=== PATIENT | female | born 1945 | race Caucasian/White ===

== ENCOUNTER 2016-06-18 06:07 | Day surgery (SDC) | payer MEDICARE, OTHER ==
[~2016-06-18 06:07] MED LIST: Ketamine HCl 50 MG/ML IJ ONE; Lactated Ringers 1,000 ML IV SCH
[2016-06-18 06:54] VITALS: O2SAT 97
[2016-06-18] MEDS ORDERED: Lactated Ringers 1,000 ML IV ONE (07:15)
[2016-06-18] MEDS ORDERED: DIPRIVAN 200 MG/20 ML IV ONE (08:00)
[2016-06-18 08:44] VITALS: BP 157/67; PULSE 66
--- NOTE | 2016-06-18 09:25 | OP ---
SURGERY DATE/TIME: 06/18/2016722 PREOPERATIVE DIAGNOSIS: Screening exam. POSTOPERATIVE DIAGNOSIS: Sigmoid diverticulosis, otherwise normal colon. PROCEDURE: Colonoscopy. SURGEON: Dr. White. ANESTHESIA: MAC. Medications given by anesthesia department. HISTORY: The patient is a 70 year-old white female presenting now for her first screening colonoscopy. The patient was appraised of the risks of the procedure including the risk of perforation, phlebitis, untoward reaction to medication, bleeding, and missed lesions. The patient verbalized her understanding and desired to have the procedure performed. DESCRIPTION OF PROCEDURE: The patient was given the medications by the anesthesia department. She had continuous pulse oximetry, ECG monitoring, intermittent blood pressure monitoring, and tidal CO2 monitoring during the examination. She was placed in the left lateral decubitus position. A digital rectal examination was performed and revealed normal anal sphincter tone and no masses. The flexible Olympus pediatric colonoscope was used to intubate the rectum. A view of the colon was developed sequentially to the cecum. Upon insertion and withdrawal, including a retroflex view in the rectum, there was noted mild to moderate sigmoid diverticulosis otherwise no mucosal lesions were encountered. The scope was removed from the patient who tolerated the procedure well and was sent back to OP recovery in good condition. The prep was noted to be fair to good.
== END 2016-06-18 08:52 | disposition home or self-care (01) ==
LOC: SDC 06:07
PROVIDERS: ATTEND Family Medicine
PROC: 0DJD8ZZ Inspection of Lower Intestinal Tract, Via Natural or Artificial Opening Endoscopic (ICD-10-PCS; principal; 2016-06-18)
DX: Z12.11 Encounter for screening for malignant neoplasm of colon (principal); K57.30 Diverticulosis of large intestine without perforation or abscess without bleeding; E11.9 Type 2 diabetes mellitus without complications; Z85.3 Personal history of malignant neoplasm of breast
CPT/HCPCS: 82962; G0121; 00810; 99100; J2704

== ENCOUNTER 2017-06-20 13:03 | Emergency (ER) | payer MEDICARE ==
[2017-06-20 14:15] LABS: BASOPHIL % 1.3 % (0.0-0.4); Basophil (Absolute #) 0.09 (0-0.4); Eosinophil % 2.3 % (0.00-5.0); Eosinophil (Absolute #) 0.16 (0-0.5); Granulocyte Absolute (ANC) 3.33 (1.4-6.9); Granulocytes % 48.9 % (36.0-66.0); Hematocrit 38.2 % (35-47); Hemoglobin 12.4 gm/dl (12.0-16.0); Lymphocyte (Absolute #) 2.32 (1.0-4.6); Mean Cell Volume 89.3 fl (78-100); Mean Corpuscular Hgb Concent. 32.5 g/dl (32-36); Mean Platelet Volume 10.3 fl (6-9.5); Monocyte (Absolute #) 0.92 (0.0-1.3); Monocytes % 13.5 % (0.0-12.0); Platelet Count 208 K/mm3 (150-450); Red Blood Count 4.28 M/mm3 (4.1-5.4); White Blood Count 6.8 K/mm3 (4.0-10.5)
[2017-06-20 14:39] LABS: ALBUMIN 4.3 g/dL (3.5-5.0); ALKALINE PHOSPHATASE 112 U/L (38-126); ANION GAP 14.2 MEQ/L (5-15); BLOOD UREA NITROGEN 9 mg/dL (7-17); CHLORIDE 103 mmol/L (98-107); Calcium 9.6 mg/dL (8.4-10.2); Carbon Dioxide 25 mmol/L (22-30); Creatinine 1 0.66 mg/dL (0.52-1.04); Glucose 144 mg/dL (74-106); SGOT/AST 28 U/L (14-36); SGPT/ALT 26 U/L (0-35); SODIUM 137 mmol/L (137-145); Total Protein 7.1 g/dL (6.3-8.2)
--- NOTE | 2017-06-20 14:57 | XRAY ---
Indication: Right leg pain and swelling. Two-dimensional sonogram and color Doppler imaging of the major venous vessels of the right leg was performed. Comparison: February 08, 2016. Upper calf again demonstrates superficial venous varicosity with intraluminal echogenicities favoring thrombophlebitis. This further extends to the level of the knee and distal thigh. Again no thrombus seen in the examined deep venous vessels the right leg including greater saphenous vein. Veins demonstrate normal compressibility. Venous waveforms are normal without without augmentation. Impression: 1. Progressive worsening superficial venous varicosities with thrombophlebitis as detailed. 2. Right leg again negative for DVT.
[2017-06-20 15:04] VITALS: O2SAT 99
--- NOTE | 2017-06-20 15:59 | ERPHSYRPT ---
- History of Present Illness Time Seen by Provider: 06/20/17 13:52 Source: patient, family () Patient Subjective Stated Complaint: pt states "I have another blood clot in my leg. I had one before." states its been bothering her since Saturday. has been swollen, and painful Triage Nursing Assessment: gait steady, right leg posterior/lateral just above knee with redness, swelling, hot to touch. pedal pulses palpable. lower leg warm to touch, toes cool bilat. Physician History: CC: right leg swelling Hx: 71 y/o patient of Dr Oropeza. She has hx of superficial thrombophlebitis. She has new right leg swelling above the knee inner leg. It is red and warm and her varicose vein worse. No fever, chills, chest pain, or dyspnea. Occurred: days ago (few) Quality: constant Lower Extremities Pain: leg: right Allergies/Adverse Reactions: Sulfa (Sulfonamide Antibiotics) Allergy (Intermediate, Verified 06/18/16 06:36) Hives nitrofurantoin [From Macrobid] Allergy (Unknown, Verified 06/18/16 06:36) Rash Home Medications: Metformin HCl 1000 mg [Glucophage 1000 MG] 1,000 mg PO BID 10/21/15 [History] Hx Tetanus, Diphtheria Vaccination/Date Given: Yes Hx Influenza Vaccination/Date Given: Yes Hx Pneumococcal Vaccination/Date Given: Yes Immunizations Up to Date: Yes - Review of Systems Constitutional: No Fever, No Chills Eyes: No Symptoms Ears, Nose, & Throat: No Symptoms Respiratory: No Dyspnea Cardiac: No Chest Pain Abdominal/Gastrointestinal: No Abdominal Pain Musculoskeletal: No Injury Neurological: No Focal Weakness, No Parasthesia All Other Systems: Reviewed and Negative - Past Medical History Pertinent Past Medical History: Yes Neurological History: No Pertinent History ENT History: No Pertinent History Cardiac History: No Pertinent History Respiratory History: No Pertinent History Endocrine Medical History: Diabetes Type II Musculoskeletal History: Rheumatoid Arthritis, Other GI Medical History: No Pertinent History History: No Pertinent History Psycho-Social History: No Pertinent History Female Reproductive Disorders: No Pertinent History, Endometriosis Other Medical History: right knee replacement, DVT unknown date right leg? - Past Surgical History Past Surgical History: Yes Neuro Surgical History: No Pertinent History Cardiac: No Pertinent History Respiratory: No Pertinent History Gastrointestinal: Appendectomy Genitourinary: No Pertinent History Musculoskeletal: Orthopedic Surgery Female Surgical History: Hysterectomy, Other Other Surgical History: BREAST BIOPSY - Social History Smoking Status: Never smoker Exposure to second hand smoke: No Drug Use: none Patient Lives Alone: No - Female History Hx Now: No - Nursing Vital Signs Nursing Vital Signs: Initial Vital Signs Temperature 97.8 F 06/20/17 13:03 Pulse Rate 62 06/20/17 13:03 Respiratory Rate 16 06/20/17 13:03 Blood Pressure 173/84 06/20/17 13:03 O2 Sat by Pulse Oximetry 99 06/20/17 13:03 Pain Scale Pain Intensity 8 - Physical Exam General Appearance: alert Eyes, Ears, Nose, Throat Exam: normal ENT inspection, moist mucous membranes Neck Exam: normal inspection, non-tender, supple Cardiovascular/Respiratory Exam: normal breath sounds, regular rate/rhythm Gastrointestinal/Abdominal Exam: non-tender, soft Neuro/Tendon Exam: normal sensation, normal motor functions Mental Status Exam: alert, oriented x 3, cooperative Skin Exam: warm, dry SpO2 Interpretation: normal SpO2: 99 Oxygen Delivery: Room Air Comments: Right leg above knee, medial has warm, swollen, erythematous area. Pulses intact. ROM intact. - Course Nursing assessment & vital signs reviewed: Yes Ordered Tests: Active Orders 24 hr Category Date Time Status VENOUS UNILAT/LIMITED EXTREMIT [US] Stat Exams 06/20/17 13:56 Completed CBC W DIFF Stat Lab 06/20/17 14:11 Completed CMP Stat Lab 06/20/17 14:11 Completed Lab/Rad Data: Laboratory Result Diagrams 06/20/17 14:11 06/20/17 14:11 Laboratory Results 06/20/17 06/20/17 Range/Units 14:11 14:11 WBC 6.8 (4.0-10.5) K/mm3 RBC 4.28 (4.1-5.4) M/mm3 Hgb 12.4 (12.0-16.0) gm/dl Hct 38.2 (35-47) % MCV 89.3 (78-100) fl MCH 29.0 (26-32) pg MCHC 32.5 (32-36) g/dl RDW 13.0 (11.5-14.0) % Plt Count 208 (150-450) K/mm3 MPV 10.3 H (6-9.5) fl Gran % 48.9 (36.0-66.0) % Eos # (Auto) 0.16 (0-0.5) Absolute Lymphs (auto) 2.32 (1.0-4.6) Absolute Monos (auto) 0.92 (0.0-1.3) Lymphocytes % 34.0 (24.0-44.0) % Monocytes % 13.5 H (0.0-12.0) % Eosinophils % 2.3 (0.00-5.0) % Basophils % 1.3 (0.0-0.4) % Absolute Granulocytes 3.33 (1.4-6.9) Basophils # 0.09 (0-0.4) Sodium 137 (137-145) mmol/L Potassium 5.0 (3.5-5.1) mmol/L Chloride 103 (98-107) mmol/L Carbon Dioxide 25 (22-30) mmol/L Anion Gap 14.2 (5-15) MEQ/L BUN 9 (7-17) mg/dL Creatinine 0.66 (0.52-1.04) mg/dL Estimated GFR > 60.0 ML/MIN Glucose 144 H (74-106) mg/dL Calcium 9.6 (8.4-10.2) mg/dL Total Bilirubin 0.60 (0.2-1.3) mg/dL AST 28 (14-36) U/L ALT 26 (0-35) U/L Alkaline Phosphatase 112 (38-126) U/L Serum Total Protein 7.1 (6.3-8.2) g/dL Albumin 4.3 (3.5-5.0) g/dL - Progress Progress Note: 06/20/17 15:55 Venous doppler right le. Progressive worsening superficial venous varicosities with thrombophlebitis as detailed. 2. Right leg again negative for DVT. Will Rx warm compresses, keflex, ibuprofen, and follow up Dr Oropeza. Counseled pt/family regarding: lab results, diagnosis, need for follow-up, rad results - Departure Time of Disposition: 15:56 Departure Disposition: Home Clinical Impression: Superficial phlebitis of right leg Condition: Stable Critical Care Time: No Referrals: SHADY OROPEZA [Primary Care Provider] - Instructions: Superficial Phlebitis Additional Instructions: Elevate leg WWarm compresses Rx keflex Rx ibuprofen Follow up with Dr Oropeza Tracy June 25 at 2:30PM. Return for worsening or concerns. Prescriptions: Cephalexin Mh 500 mg [Keflex 500 mg] 1 cap PO QID #40 capsule Ibuprofen 1 tab PO TID #24 tablet
[2017-06-20 18:02] VITALS: BP 155/70; PULSE 71
== END 2017-06-20 16:15 | disposition home or self-care (01) ==
LOC: ED 13:03
DX: I80.01 Phlebitis and thrombophlebitis of superficial vessels of right lower extremity (principal); E11.9 Type 2 diabetes mellitus without complications; Z79.84 Long term (current) use of oral hypoglycemic drugs
CPT/HCPCS: 36415; 80053; 85025; 93971; 99284

== ENCOUNTER 2018-05-28 13:34 | Observation (INO) | payer MEDICARE ==
[2018-05-28] MEDS ORDERED: Sodium Chloride 0.9% 1000 ML 1,000 ML IV STA (14:26)
--- NOTE | 2018-05-28 15:01 | XRAY ---
Indication: Tired and weak. Comparison: None PA/lateral chest is clear. Heart and mediastinal structures within normal limits. Bony thorax intact with minimal degenerative changes and minimal scoliosis. Impression: Nonacute chest.
[2018-05-28 15:06] LABS: BASOPHIL % 0.4 % (0.0-0.4); Basophil (Absolute #) 0.03 (0-0.4); Eosinophil % 2.7 % (0.00-5.0); Eosinophil (Absolute #) 0.18 (0-0.5); Granulocyte Absolute (ANC) 4.34 (1.4-6.9); Granulocytes % 64.2 % (36.0-66.0); Hematocrit 39.5 % (35-47); Hemoglobin 12.8 gm/dl (12.0-16.0); Lymphocyte (Absolute #) 1.59 (1.0-4.6); Lymphocytes % 23.5 % (24.0-44.0); Mean Cell Volume 89.6 fl (78-100); Mean Corpuscular Hgb Concent. 32.4 g/dl (32-36); Mean Platelet Volume 11.3 fl (6-9.5); Monocyte (Absolute #) 0.62 (0.0-1.3); Monocytes % 9.2 % (0.0-12.0); Platelet Count 253 K/mm3 (150-450); Red Blood Count 4.41 M/mm3 (4.1-5.4); Red Cell Distribution Width 13.1 % (11.5-14.0); White Blood Count 6.8 K/mm3 (4.0-10.5)
[2018-05-28 15:23] LABS: ALBUMIN 4.2 g/dL (3.5-5.0); ALKALINE PHOSPHATASE 87 U/L (38-126); ANION GAP 16.5 MEQ/L (5-15); BLOOD UREA NITROGEN 13 mg/dL (7-17); CHLORIDE 102 mmol/L (98-107); Carbon Dioxide 24 mmol/L (22-30); Creatinine 1 0.81 mg/dL (0.52-1.04); Glucose 123 mg/dL (74-106); Potassium 4.6 mmol/L (3.5-5.1); SGOT/AST 33 U/L (14-36); SGPT/ALT 32 U/L (0-35); SODIUM 138 mmol/L (137-145)
[2018-05-28] MEDS ORDERED: Sodium Chloride 0.9% 1000 ML 1,000 ML ONE (15:59)
--- NOTE | 2018-05-28 17:14 | ERPHSYRPT ---
- History of Present Illness Source: patient Exam Limitations: no limitations Patient Subjective Stated Complaint: pt here for palpations today at home, she states she felt a litttle dizzy and weak, but now is gone Triage Nursing Assessment: pt alert, resp easy, skin w/d/p. abd soft, no edema Physician History: Pt is a 72 y/o female that did not feel well today. She states had feeling "of butterflies" in her chest. She felt as if she is going to pass out. Pt is eating and drinking well. No chest pain, but does have palpitations. Pt states , in the past had a diagnosis of A fib, but she is on no meds for heart rate or anti coagulation. Pt has no N/V/D or abdominal pain. No dysuria, frequency or urgency. Prior Episodes: other (felt unwell through the day.) Timing/Duration: today Precipitating Factors: none Loss of Consciousness: no loss of consciousness Charcter of event(s): felt faint, almost passed out Allergies/Adverse Reactions: Sulfa (Sulfonamide Antibiotics) Allergy (Intermediate, Verified 05/28/18 13:42) Hives nitrofurantoin [From Macrobid] Allergy (Unknown, Verified 05/28/18 13:42) Rash Home Medications: Metformin HCl 1000 mg [Glucophage 1000 MG] 1,000 mg PO BID 10/21/15 [History] Hx Tetanus, Diphtheria Vaccination/Date Given: Yes Hx Influenza Vaccination/Date Given: Yes Hx Pneumococcal Vaccination/Date Given: Yes Immunizations Up to Date: Yes - Past Medical History Pertinent Past Medical History: Yes Neurological History: No Pertinent History ENT History: No Pertinent History Cardiac History: No Pertinent History Respiratory History: No Pertinent History Endocrine Medical History: Diabetes Type II Musculoskeletal History: Rheumatoid Arthritis, Other GI Medical History: No Pertinent History History: No Pertinent History Psycho-Social History: No Pertinent History Female Reproductive Disorders: No Pertinent History, Endometriosis Other Medical History: right knee replacement, DVT unknown date right leg? - Past Surgical History Past Surgical History: Yes Neuro Surgical History: No Pertinent History Cardiac: No Pertinent History Respiratory: No Pertinent History Gastrointestinal: Appendectomy Genitourinary: No Pertinent History Musculoskeletal: Orthopedic Surgery Female Surgical History: Hysterectomy, Other Other Surgical History: BREAST BIOPSY - Social History Smoking Status: Never smoker Exposure to second hand smoke: No Drug Use: none Patient Lives Alone: No - Female History Hx Last Menstrual Period: psot Hx Now: No - Review of Systems Constitutional: Lethargy Eyes: No Symptoms Ears, Nose, & Throat: No Symptoms Respiratory: No Cough, No Dyspnea Cardiac: Palpitations, Other (pre syncope) Abdominal/Gastrointestinal: No Abdominal Pain, No Nausea, No Vomiting, No Diarrhea Musculoskeletal: No Back Pain, No Neck Pain Neurological: No Dizziness, No Focal Weakness, No Sensory Changes Physical Exam - Nursing Vital Signs Nursing Vital Signs: Initial Vital Signs Temperature 97 F 05/28/18 13:43 Pulse Rate 60 05/28/18 13:43 Respiratory Rate 18 05/28/18 13:43 Blood Pressure 147/85 05/28/18 13:43 O2 Sat by Pulse Oximetry 99 05/28/18 13:43 Pain Scale Pain Intensity 0 - Leland Coma Scale Best Eye Response (Leland): (4) open spontaneously Best Verbal Response ([employer]): (5) oriented Best Motor Response (Leland): (6) obeys commands Leland Total: 15 - Physical Exam General Appearance: no apparent distress, alert Eye Exam: bilateral eye: normal inspection, PERRL, EOMI Ears, Nose, Throat Exam: normal ENT inspection, pharynx normal, moist mucous membranes Respiratory: normal breath sounds, lungs clear, No chest tenderness, No respiratory distress Cardiovascular: regular rate/rhythm (periodically HR drops below 60s), capillary refill <2 sec, No murmur, No pulse deficit Gastrointestinal: soft, No tenderness, No distention, No mass Back Exam: normal inspection, normal range of motion, No CVA tenderness, No vertebral tenderness Extremity Exam: normal inspection, normal range of motion, pelvis stable, No tenderness Mental Status: alert, oriented x 3, 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 maker 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 Exam: normal speech, PERRL, No facial droop Motor/Sensory: no motor deficit, no sensory deficit, no pronator drift SpO2: 100 - Course Nursing assessment & vital signs reviewed: Yes EKG Interpreted by Me: RATE (60bpm), Sinus Rhythm, NORMAL ST-T Ordered Tests: Active Orders 24 hr Category Date Time Status Service Parts Coordinator STAT Care 05/28/18 14:27 Active EKG-ER Only STAT Care 05/28/18 14:26 Active IV Insertion STAT Care 05/28/18 14:26 Active Orthostatic Vital Signs STAT Care 05/28/18 14:27 Active CHEST 2 VIEWS (PA AND LAT) Stat Exams 05/28/18 14:26 Completed CBC W DIFF Stat Lab 05/28/18 14:40 Completed CMP Stat Lab 05/28/18 14:40 Completed TROPONIN Q3H Lab 05/28/18 14:40 Completed TROPONIN Q3H Lab 05/28/18 17:30 Ordered TROPONIN Q3H Lab 05/28/18 20:30 Ordered TROPONIN Q3H Lab 05/28/18 23:30 Ordered TROPONIN Q3H Lab 05/29/18 02:30 Ordered Medication Summary Discontinued Medications Generic Name Dose Route Start Last Admin Trade Name Freq PRN Reason Stop Dose Admin Sodium Chloride 1,000 mls @ 999 mls/hr 05/28/18 14:26 05/28/18 16:05 Sodium Chloride 0.9% 1000 Ml IV 05/28/18 15:26 999 mls/hr .Q1H1M STA Administration Sodium Chloride Confirm 05/28/18 15:59 Sodium Chloride 0.9% 1000 Ml Administered 05/28/18 16:00 Dose 1,000 mls @ ud [facility] Lab/Rad Data: Laboratory Result Diagrams 05/28/18 14:40 05/28/18 14:40 Laboratory Results 05/28/18 05/28/18 05/28/18 Range/Units 14:40 14:40 14:40 WBC 6.8 (4.0-10.5) K/mm3 RBC 4.41 (4.1-5.4) M/mm3 Hgb 12.8 (12.0-16.0) gm/dl Hct 39.5 (35-47) % MCV 89.6 (78-100) fl MCH 29.0 (26-32) pg MCHC 32.4 (32-36) g/dl RDW 13.1 (11.5-14.0) % Plt Count 253 (150-450) K/mm3 MPV 11.3 H (6-9.5) fl Gran % 64.2 (36.0-66.0) % Eos # (Auto) 0.18 (0-0.5) Absolute Lymphs (auto) 1.59 (1.0-4.6) Absolute Monos (auto) 0.62 (0.0-1.3) Lymphocytes % 23.5 L (24.0-44.0) % Monocytes % 9.2 (0.0-12.0) % Eosinophils % 2.7 (0.00-5.0) % Basophils % 0.4 (0.0-0.4) % Absolute Granulocytes 4.34 (1.4-6.9) Basophils # 0.03 (0-0.4) Sodium 138 (137-145) mmol/L Potassium 4.6 (3.5-5.1) mmol/L Chloride 102 (98-107) mmol/L Carbon Dioxide 24 (22-30) mmol/L Anion Gap 16.5 H (5-15) MEQ/L BUN 13 (7-17) mg/dL Creatinine 0.81 (0.52-1.04) mg/dL Estimated GFR > 60.0 ML/MIN Glucose 123 H (74-106) mg/dL Calcium 10.0 (8.4-10.2) mg/dL Total Bilirubin 0.50 (0.2-1.3) mg/dL AST 33 (14-36) U/L ALT 32 (0-35) U/L Alkaline Phosphatase 87 (38-126) U/L Troponin I < 0.012 (0.000-0.034) ng/mL Serum Total Protein 7.0 (6.3-8.2) g/dL Albumin 4.2 (3.5-5.0) g/dL - Progress Progress: improved Discussed with : Carlo Will see patient in: hospital (observation) Counseled pt/family regarding: lab results, diagnosis, rad results - Departure Time of Disposition: 17:14 Departure Disposition: Observation Clinical Impression: Pre-syncope Condition: Stable Critical Care Time: No
[2018-05-28] MEDS ORDERED: NovoLOG Insulin SQ PRN (17:15)
[2018-05-28 19:07] LABS: Appearance CLEAR (CLEAR); Bilirubin NEGATIVE (NEGATIVE); Blood NEGATIVE Ery/ul (0-5); Epithelial Cells RARE /HPF (FEW); Glucose NEGATIVE (NEGATIVE); Ketones NEGATIVE (NEGATIVE); Leukocyte Esterase NEGATIVE (NEGATIVE); Mucus SLIGHT /HPF (NEGATIVE); Nitrite NEGATIVE (NEGATIVE); Protein,Urine Dip NEGATIVE (Negative); Specific Gravity 1.009 (1.005-1.025); Urobilinogen NEGATIVE mg/dL (0-1)
[2018-05-28 19:31] LABS: Bacteria NONE SEEN /HPF (NEGATIVE)
[2018-05-28] MEDS: Glucophage 500 MG PO SCH (19:49)
[2018-05-28] MEDS: TYLENOL 325 MG PO PRN (21:53)
[2018-05-29 02:50] LABS: BASOPHIL % 0.6 % (0.0-0.4); Basophil (Absolute #) 0.04 (0-0.4); Eosinophil % 3.9 % (0.00-5.0); Eosinophil (Absolute #) 0.27 (0-0.5); Granulocytes % 48.5 % (36.0-66.0); Hematocrit 38.4 % (35-47); Hemoglobin 12.5 gm/dl (12.0-16.0); Lymphocyte (Absolute #) 2.72 (1.0-4.6); Lymphocytes % 38.9 % (24.0-44.0); Mean Cell Volume 90.1 fl (78-100); Mean Corpuscular Hemoglobin 29.3 pg (26-32); Mean Corpuscular Hgb Concent. 32.6 g/dl (32-36); Mean Platelet Volume 10.5 fl (6-9.5); Monocyte (Absolute #) 0.57 (0.0-1.3); Monocytes % 8.1 % (0.0-12.0); Platelet Count 246 K/mm3 (150-450); Red Blood Count 4.26 M/mm3 (4.1-5.4)
[2018-05-29] MEDS: TYLENOL 325 MG PO PRN (02:54)
[2018-05-29 03:07] LABS: ANION GAP 13.8 MEQ/L (5-15); BLOOD UREA NITROGEN 13 mg/dL (7-17); CHLORIDE 105 mmol/L (98-107); Carbon Dioxide 24 mmol/L (22-30); Creatinine 1 0.72 mg/dL (0.52-1.04); Glucose 118 mg/dL (74-106); Potassium 4.2 mmol/L (3.5-5.1); SODIUM 138 mmol/L (137-145)
[2018-05-29] MEDS: Glucophage 500 MG PO SCH ×2 (08:08→17:16)
[2018-05-29] MEDS ORDERED: Coumadin 2 MG PO ONE (09:10)
[2018-05-29 09:14] LABS: INR 1.07 (0.8-3.0); PROTIME 12.4 SECONDS (9.95-12.35)
--- NOTE | 2018-05-29 09:50 | HP ---
HISTORY OF PRESENT ILLNESS: This is a 72 year-old patient who presented to the emergency department yesterday. She reports she felt tired for the past week and then yesterday she tried to clean her floor. She states she got a 4x4 section done and then felt like just lost all strength and then later she was taking some decorations upstairs carrying a box and had some dyspnea at the top of the stairway. She decided to take a break and then when it was time to come back down the stairs she felt like she was going to faint so she sat down and waited until that feeling passed. She reports she was lightheaded and felt like the room was spinning and like she was fading. She then was able to come back downstairs and was feeling better and told her that she just did not feel right. She reports she had weakness and felt like her balance has been off. She reports feeling like she is mixed up and disoriented. Kind of like she might feel if she had a high fever although she has not had any fever. She denies leaving any burners on or getting lost and states maybe her daughters noticed this as well but kind of vague symptoms as far as feeling "not herself". She reports this does not feel like what her atrial fibrillation usually feels like when acts up. She said that feels like a flutter in her heart and does happen daily and her heart beats hard when that happens. She denies skipping any meals. She had a late breakfast. She did not eat lunch before she came to the emergency room and then reports she did not get any supper until 2000 hours and had a headache from that. She reports her blood glucoses have been running higher at times like 155 in the morning. REVIEW OF SYSTEMS: No fever. A little bit of nausea. No vomiting. She had dyspnea with exertion sometimes. No chest pain. No lower extremity edema. No dysuria. She reports increased urination at night going two to three times which is not necessarily new for her. PAST MEDICAL HISTORY: Diabetes mellitus type 2. Paroxysmal atrial fibrillation. Dr. Haley saw her in March and wanted her to try Pradaxa but the patient states this was too expensive for her. His notes stated that if it was too expensive they were going to start her on warfarin but the patient reports she never started warfarin. He does want her anticoagulated for paroxysmal atrial fibrillation. The patient is agreeable for Coumadin for this. PAST SURGICAL HISTORY: Hysterectomy. Tonsillectomy. Appendectomy. Right knee replacement. Breast biopsy. MEDICATIONS: Metformin 1,000 mg p.o. b.i.d. ALLERGIES: SULFA, NITROFURANTOIN. SOCIAL HISTORY: She is . She denies any tobacco or alcohol use. FAMILY HISTORY: Her mother is and had breast cancer. Her father is and had colon cancer. She reports sister had breast cancer as well. PHYSICAL EXAMINATION: VITAL SIGNS: Temperature current 97.5F, temperature max 98.0F, heart rate 45 to 63, respiratory rate 16 to 18, blood pressure 123 to 154 over 63 to 70, weight 87.2 kg. Oxygen saturation 93 to 100% on room air. GENERAL: The patient is a pleasant talkative lady sitting up in bed in no acute distress. She is alert, oriented x3 and knows who the President of [employer] is. Cranial nerves II-XII are intact. Strength 5/5 in all four extremities. Normal finger to nose and heel to santiago. CVS: Her heart has a regular rate and rhythm. No murmurs, gallops or rubs are appreciated. CHEST: Clear to auscultation bilaterally. No crackles or wheezes. ABDOMEN: Soft, nontender, nondistended with normal bowel sounds. EXTREMITIES: No clubbing, cyanosis or edema. SKIN: Warm, dry and intact. LABORATORY DATA AND TESTS: CBC within normal limits. BMP with a glucose of 118. Serial troponins have been negative. UA negative. EKG from 05/28/2018 with heart rate of 60, sinus rhythm. No ST or T wave changes. Chest x-ray was read as nonacute chest. ASSESSMENT AND PLAN: 1) BRADYCARDIA: The patient is concerned that the bradycardia is causing her these episodes. Her current city carrier does not come to this hospital. She is thinking about switching to a city carrier that does. Will ask Dr. Rachel to see her. Will check EKG today. There has not been any events printed out from her telemetry report. 2) PRESYNCOPE: Will check carotid Doppler's. Will try to obtain Dr. Haley's records for recent echocardiogram. Continue with telemetry. 3) DIABETES MELLITUS TYPE 2, UNCONTROLLED: Will start Glipizide Extended Release 2.5 mg daily in the morning and continue the Metformin 1,000 mg b.i.d. Her hemoglobin A1C was slightly elevated at 8.0. 4) CODE STATUS: The patient does not want to be put on a breathing machine. She said she wants to be Do Not Resuscitate, this was confirmed with the patient and the order was signed on her chart. 5) PAROXYSMAL ATRIAL FIBRILLATION: The patient is agreeable to starting Coumadin and wants to follow up in our Coumadin clinic so we will give her 4 mg of Coumadin this morning and then start with 4 mg in the evening. Will check her international normalized ratio before starting today.
[2018-05-29] MEDS: Glucotrol Xl 2.5 MG PO SCH (09:52)
[2018-05-29] MEDS: ENOXAPARIN SODIUM SQ SCH ×3 (09:53→12:42)
[2018-05-29] MEDS ORDERED: Glucotrol Xl 5 MG PO SCH ×2 (10:00)
--- NOTE | 2018-05-29 10:32 | XRAY ---
Indication: Syncope. Two-dimensional sonogram and color Doppler imaging of the carotid arteries of the neck performed. Comparison: None Examination of the right carotid circulation demonstrates very minimal soft plaquing at the level of bulb, proximal external, and proximal internal carotid arteries. PSV of the CCA is 80 cm/s. PSV of the ICA is 96 cm/s. ICA/CCA ratio is 1.2. Normal antegrade vertebral artery flow. Examination of the left carotid circulation demonstrates widely patent common carotid, bulb, and internal/external carotid arteries. PSV of the CCA is 87 cm/s. PSV of the ICA is 104 cm/s. ICA/CCA ratio is 1.2. Normal antegrade vertebral artery flow. Impression: Very minimal plaquing in the right carotid circulation and widely patent left carotid circulation. Velocity measurements and ratios are negative for hemodynamically significant flow-limiting stenosis.
[2018-05-29] MEDS ORDERED: Coumadin 2 MG PO SCH (18:00)
[2018-05-29] MEDS: BETAMETHASONE DIPROPIONATE TOP SCH (23:00)
--- NOTE | 2018-05-30 07:51 | CONS ---
CONSULT DATE: 05/29/2018 BRIEF HISTORY: This is a 72 year-old female who was seen because of atrial fibrillation, dizzy spells and just did not feel right. She stated that for the last two to three days she just does not feel right but denies any joanne syncope. She denies any fever but she had a bout of chest discomfort. She also noted that when she was carrying some loads upstairs she became extremely short of breath. She has been previously evaluated and was found to have paroxysmal atrial fibrillation and was placed on anticoagulation with a heart rate control strategy. She denies any neurological symptoms such as numbness, any motor weakness or blurring of vision. When she was admitted in the emergency room she was noted to be bradycardic. She also had checked her blood sugar which was 155. She has never had a myocardial infarction or heart failure. CARDIAC RISK FACTORS: She has diabetes mellitus type 2. Negative for hypertension. She does not smoke. No known hyperlipidemia. FAMILY HISTORY: Positive for coronary artery disease. Her brother from massive myocardial infarction at age 71. 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 No seizures. No headaches. No paresthesia. RESPIRATORY: No chronic cough or hemoptysis. GI: Denies any nausea. No vomiting. : No dysuria. No flank pains. PERIPHERAL VASCULAR: She has had history of superficial thrombophlebitis and has had vein ablation. HEMATOLOGY: No blood dyscrasia or transfusion. CONSTITUTIONAL: No significant weight gain or weight loss. No febrile illness. ENDOCRINE: No history of thyroid disorder. PAST SURGICAL HISTORY: Appendectomy. Hysterectomy. Right knee replacement. CURRENT MEDICATIONS: Metformin, Coumadin, Glipizide. PHYSICAL EXAMINATION: Her blood pressure is 147/85 with a heart rate of 55, respirations about 16. GENERAL: This is an elderly female who is alert, oriented, who is not in any form of distress. HEENT: Unremarkable. NECK: No significant JVD. No carotid bruit. CHEST: The breath sounds are clear. CARDIAC: The heart tones are normal. There is a grade 2 to 3/6 harsh systolic murmur maximum along the left parasternal border. ABDOMEN: Soft with normal bowel sounds. No bruit. EXTREMITIES: No significant edema with good distal pulses. There is a well healed scar on the left knee. LAB DATA AND DIAGNOSTIC TESTS: Hemoglobin A1C is 8. Hemoglobin 12.5, PLT count 246,000. Glomerular filtration rate is greater than 60. Serum electrolytes are normal. Troponin I is normal. IMPRESSION: In essence the patient complains of: 1) Transient weakness maybe secondary to bradyarrhythmia. She will need a Holter monitor. 2) CARDIAC MURMUR: We are going to re-evaluate her valves to rule out any significant aortic stenosis or mitral regurgitation. 3) HISTORY OF CHEST PAINS WITH MULTIPLE CARDIAC RISK FACTORS: I am going to go ahead and schedule her for pharmacologic stress test. Further recommendations will be made after all the tests have been completed.
[2018-05-30 08:27] VITALS: BP 123/58; PULSE 53; O2SAT 94
--- NOTE | 2018-05-30 08:31 | PCM.DCORD ---
- Discharge Discharge Date: 05/30/18 Disposition: Home, Self-Care Condition: Good Prescriptions: New RX: Betamethasone Dipropionate 1 gm TOP BID #60 oint...g. RX: Warfarin Sodium 2 mg [Coumadin 2 MG] 4 mg PO DAILY@1800 #30 tablet RX: Glipizide 2.5 mg [Glucotrol Xl 2.5 MG] 2.5 mg PO BREAKFAST #30 tab.sa.osm Continue RX: Metformin HCl 1000 mg [Glucophage 1000 MG] 1,000 mg PO BID Follow up with: MARGOT JOHNSON [ACTIVE STAFF] - 1 Week SHADY OROPEZA [Primary Care Provider] - 1 Week
[2018-05-30] MEDS: Glucophage 500 MG PO SCH (08:44)
[2018-05-30] MEDS: Glucotrol Xl 2.5 MG PO SCH (08:44)
[2018-05-30] MEDS: ENOXAPARIN SODIUM SQ SCH (09:07)
[2018-05-30] MEDS: BETAMETHASONE DIPROPIONATE TOP SCH (09:08)
--- NOTE | 2018-06-03 08:41 | DS ---
DISCHARGE DIAGNOSES: 1) BRADYCARDIA. 2) PRESYNCOPE. 3) DIABETES MELLITUS TYPE 2, UNCONTROLLED. 4) PAROXYSMAL ATRIAL FIBRILLATION. DISCHARGE PHYSICAL EXAMINATION: VITALS: Temperature current 97.7F, heart rate 53, respiratory rate 20, blood pressure 123/58, weight 87.2 kg. Oxygen saturation 94% on room air. GENERAL: The patient is a pleasant talkative lady sitting up in no acute distress. CVS: She has a regular rate and rhythm. She has a 2/6 systolic ejection murmur heard best at the right parasternal border. No gallops or rubs are appreciated. CHEST: Clear to auscultation bilaterally. No crackles or wheezes. ABDOMEN: Soft, nontender, nondistended with normal bowel sounds. EXTREMITIES: No clubbing, cyanosis or edema. SKIN: Warm, dry and intact. HOSPITAL COURSE: 1) BRADYCARDIA: The patient was found to have a heart rate down to the 40's on telemetry. Dr. Rachel was consulted. He wants to see her in his office at the time of discharge and states he plans to order an echocardiogram, Holter and stress test at his office. The patient is agreeable to being discharged to follow up with Dr. Rachel. He saw her in the hospital yesterday. 2) PRESYNCOPE: I did carotid Doppler that did not show any problems. She had no further syncopal episodes or presyncopal episodes. 3) DIABETES MELLITUS TYPE 2, UNCONTROLLED: The patient has not followed up in the clinic recently. She is on Metformin. I added Glipizide Extended Release 2.5 p.o. daily and discussed signs of hypoglycemia and to make sure she always carries a roll of glucose tablets with her. She reports she has plenty of testing supplies. I will follow up with her in the clinic. 4) PAROXYSMAL ATRIAL FIBRILLATION: She had not started anticoagulation as previously recommended by her previous director community health nursing, Dr. Haley, due to cost. I started her on Coumadin 4 mg daily. The first day she was at 8 mg total. She is going to follow up with the Coumadin Clinic at [facility] and already has an appointment for this. DISCHARGE MEDICATIONS: Please see the discharge order. FOLLOW UP: She is to follow up with myself in a week and Dr. Rachel today. DISPOSITION: The patient was discharged to home in good condition.
== END 2018-05-30 10:22 | disposition home or self-care (01) ==
LOC: ED 13:34 → MED SURG 16:55
PROVIDERS: ADMIT Internal Medicine; ATTEND Internal Medicine
DX: R00.1 Bradycardia, unspecified (principal); R55 Syncope and collapse; E11.65 Type 2 diabetes mellitus with hyperglycemia; I48.0 Paroxysmal atrial fibrillation; R07.9 Chest pain, unspecified; R53.1 Weakness; R01.1 Cardiac murmur, unspecified; Z79.01 Long term (current) use of anticoagulants; Z79.84 Long term (current) use of oral hypoglycemic drugs; Z79.899 Other long term (current) drug therapy
CPT/HCPCS: 36415; 71046; 80048; 80053; 81001; 82962; 83036; 84443; 84484; 85025; 85379; 85610; 93005; 93041; 93268; 93880; 96360; 99285; G0378; J1650; A9270-GY

== ENCOUNTER 2020-11-11 19:06 | Emergency (ER) | payer MEDICARE ==
--- NOTE | 2020-11-11 19:09 | ERPHSYRPT ---
- History of Present Illness Time Seen by Provider: 11/11/20 19:09 Source: patient, family Exam Limitations: no limitations Physician History: This is a 75-year-old diabetic white female on Coumadin, metoprolol, metformin and Glucophage. Who was brought into the emergency department by her because of confusion. He is concerned that she might of had a stroke. Patient was last seen well, per his report at noon today. He came home at 230 and states that she seemed more confused. He did not bring her into the emergency department till after 730. Patient states that she does not recall all the events of today. She has been feeling very weak and tired over the last several days. She believes she might have a urinary tract infection. She has had these types of symptoms before. She does not have complaints of headache. She does not have chest pain. She has no shortness of breath. Patient denies head injury. She has no nausea vomiting or diarrhea. Patient denies cough. She has not had a fever. She does see a smt operator, Dr. Rachel. Timing/Duration: day(s), worse (Several days today was worse) Character of Deficits: other (Confusion and weakness) Deficits: weak Baseline/Normal Cognition: alert oriented x 3 Current Cognition: alert but confused Baseline Gait: walks w/o assistance Associated Symptoms: confusion, weakness, No fever, No loss of consciousness, No nausea, No vomiting, No paresthesia, No chest pain Allergies/Adverse Reactions: Sulfa (Sulfonamide Antibiotics) Allergy (Intermediate, Verified 11/11/20 19:34) Hives nitrofurantoin [From Macrobid] Allergy (Unknown, Verified 11/11/20 19:34) Rash Home Medications: Metformin HCl 1000 mg [Glucophage 1000 MG] 1,000 mg PO BID 10/21/15 [History] Metoprolol Tartrate 12.5 mg PO BID 06/24/18 [History] Atorvastatin Calcium 40 mg PO HS 09/30/18 [History] Cholecalciferol (Vitamin D3) [Vitamin D3] 1,000 unit PO DAILY 07/14/20 [History] Duloxetine HCl [Cymbalta] 30 mg PO QAM 07/14/20 [History] Hx Tetanus, Diphtheria Vaccination/Date Given: Yes Hx Influenza Vaccination/Date Given: Yes Hx Pneumococcal Vaccination/Date Given: Yes Travel Risk - International Travel Have you traveled outside of the country in past 3 weeks: No - Coronavirus Screening Are you exhibiting any of the following symptoms?: No Close contact with a COVID-19 positive Pt in past 14-21 Days: No - Vaccine Status Have you recieved a Covid-19 vaccination: Yes Carton Filler: Moderna - Review of Systems Constitutional: Weakness Eyes: No Symptoms Ears, Nose, & Throat: No Symptoms Respiratory: No Symptoms Cardiac: No Symptoms Abdominal/Gastrointestinal: No Symptoms Genitourinary Symptoms: No Symptoms Musculoskeletal: No Symptoms Skin: No Symptoms Neurological: Other (Confusion) Psychological: No Symptoms Endocrine: No Symptoms Hematologic/Lymphatic: No Symptoms Immunological/Allergic: No Symptoms All Other Systems: Reviewed and Negative - Past Medical History Pertinent Past Medical History: Yes Neurological History: No Pertinent History ENT History: No Pertinent History Cardiac History: Arrhythmia Respiratory History: No Pertinent History Endocrine Medical History: Diabetes Type II Musculoskeletal History: Rheumatoid Arthritis, Other GI Medical History: No Pertinent History History: No Pertinent History Psycho-Social History: No Pertinent History Female Reproductive Disorders: Endometriosis Other Medical History: right knee replacement, DVT 2017 , 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, PT HAD AFIB 02/2018 - Past Surgical History Past Surgical History: Yes Neuro Surgical History: No Pertinent History Cardiac: No Pertinent History Respiratory: No Pertinent History Gastrointestinal: Appendectomy Genitourinary: No Pertinent History Musculoskeletal: Orthopedic Surgery Female Surgical History: Hysterectomy, Other Other Surgical History: BREAST BIOPSY, RIGHT KNEE REPLACEMENT - Social History Smoking Status: Never smoker Exposure to second hand smoke: No Drug Use: none Patient Lives Alone: No - Nursing Vital Signs Nursing Vital Signs: Initial Vital Signs Temperature 98.5 F 11/11/20 19:16 Pulse Rate 78 11/11/20 19:16 Respiratory Rate 22 11/11/20 19:16 Blood Pressure 133/54 11/11/20 19:16 O2 Sat by Pulse Oximetry 91 L 11/11/20 19:16 Pain Scale Pain Intensity 0 - Camino Coma Scale Best Eye Response (Camino): (4) open spontaneously Best Verbal Response (Camino): (5) oriented Best Motor Response (Camino): (6) obeys commands Leland Total: 15 - Physical Exam General Appearance: no apparent distress, alert, anxiety Eye Exam: bilateral eye: normal inspection, PERRL, EOMI Ears, Nose, Throat Exam: normal ENT inspection, moist mucous membranes Neck Exam: normal inspection, non-tender, supple, full range of motion Respiratory: normal breath sounds, lungs clear, airway intact, No chest tenderness, No respiratory distress Cardiovascular: regular rate/rhythm, normal heart sounds, normal peripheral pulses Gastrointestinal: soft, normal bowel sounds, No tenderness Pelvic Exam: not done Rectal Exam: not done Back Exam: normal inspection, normal range of motion, No CVA tenderness, No vertebral tenderness Extremity Exam: normal inspection, normal range of motion, pelvis stable Mental Status: alert, oriented x 3, cooperative, other (Seems a little slow to answer but her answers are correct.) lap checker Exam: normal hearing, normal speech, PERRL Coordination/Gait: normal finger to nose, normal gait, normal cerebellar function Motor/Sensory: no motor deficit, no sensory deficit Skin Exam: normal color, warm, dry SpO2 Interpretation: borderline oxygenation O2 Delivery: Room Air - Course Nursing assessment & vital signs reviewed: Yes EKG Interpreted by Me: RATE (78), Sinus Rhythm, NORMAL AXIS, NORMAL INTERVALS, NORMAL QRS, NORMAL ST-T, Other (No acute ischemic changes on today's EKG. She has no chest pain. There is no comparison EKG available.) Ordered Tests: Active Orders 24 hr Category Date Time Status NPO (ED) STAT Care 11/11/20 19:10 Active Pulse Oximetry (ED) STAT Care 11/11/20 19:10 Active HEAD WITHOUT CONTRAST [CT] Stat Exams 11/11/20 19:07 Taken CBC W DIFF Stat Lab 11/11/20 19:30 Completed CMP Stat Lab 11/11/20 19:30 Completed CULTURE,URINE Stat Lab 11/11/20 19:43 Received Lactic Acid Stat Lab 11/11/20 19:57 Completed PROTIME WITH INR Stat Lab 11/11/20 19:30 Completed TROPONIN Q3H Lab 11/11/20 18:15 Received TROPONIN Q3H Lab 11/12/20 00:30 Ordered TROPONIN Q3H Lab 11/12/20 03:30 Ordered TROPONIN Q3H Lab 11/12/20 06:30 Ordered TROPONIN Q3H Lab 11/12/20 09:30 Ordered UA W/RFX UR CULTURE Stat Lab 11/11/20 19:43 Completed Transfer Order Routine Transfer 11/11/20 Ordered Medication Summary Generic Name Dose Route Start Last Admin Trade Name Freq PRN Reason Stop Dose Admin Sodium Chloride 1,000 mls @ 999 mls/hr 11/11/20 21:16 11/11/20 21:25 Sodium Chloride 0.9% 1000 Ml IV 11/11/20 22:16 999 mls/hr .Q1H1M STA Administration Discontinued Medications Generic Name Dose Route Start Last Admin Trade Name Eriberto PRN Reason Stop Dose Admin Ceftriaxone Sodium/Dextrose 1 g in 50 mls @ 100 mls/hr 11/11/20 20:38 11/11/20 21:27 Rocephin 1 Gm-D5w 50 Ml Bag IV 11/11/20 21:07 Infused STAT STA Infusion Ceftriaxone Sodium/Dextrose Confirm 11/11/20 20:42 Rocephin 1 Gm-D5w 50 Ml Bag Administered 11/11/20 20:43 Dose 1 g in 50 mls @ ud IV .STNotifo-MED ONE Sodium Chloride Confirm 11/11/20 21:23 Sodium Chloride 0.9% 1000 Ml Administered 11/11/20 21:24 Dose 1,000 mls @ ud .ROUTE .STNotifo-MED ONE Lab/Rad Data: Laboratory Result Diagrams 11/11/20 19:30 11/11/20 19:30 Laboratory Results 11/11/20 11/11/20 11/11/20 Range/Units 19:57 19:43 19:30 WBC (4.0-10.5) K/mm3 RBC (4.1-5.4) M/mm3 Hgb (12.0-16.0) gm/dl Hct (35-47) % MCV (78-100) fl MCH (26-32) pg MCHC (32-36) g/dl RDW (11.5-14.0) % Plt Count (150-450) K/mm3 MPV (7.5-11.0) fl Gran % (36.0-66.0) % Eos # (Auto) (0-0.5) Absolute Lymphs (auto) (1.0-4.6) Absolute Monos (auto) (0.0-1.3) Lymphocytes % (24.0-44.0) % Monocytes % (0.0-12.0) % Eosinophils % (0.00-5.0) % Basophils % (0.0-0.4) % Absolute Granulocytes (1.4-6.9) Basophils # (0-0.4) PT 33.6 H (9.4-12.5) SECONDS INR 2.85 (0.8-3.0) Sodium (137-145) mmol/L Potassium (3.5-5.1) mmol/L Chloride (98-107) mmol/L Carbon Dioxide (22-30) mmol/L Anion Gap (5-15) MEQ/L BUN (7-17) mg/dL Creatinine (0.52-1.04) mg/dL Estimated GFR ML/MIN Glucose (74-106) mg/dL Lactic Acid 1.0 (0.4-2.0) Calcium (8.4-10.2) mg/dL Total Bilirubin (0.2-1.3) mg/dL AST (14-36) U/L ALT (0-35) U/L Alkaline Phosphatase (38-126) U/L Serum Total Protein (6.3-8.2) g/dL Albumin (3.5-5.0) g/dL Urine Color YELLOW (YELLOW) Urine Appearance CLOUDY (CLEAR) Urine pH 6.0 (5-6) Ur Specific Wilson 1.017 (1.005-1.025) Urine Protein 100 (Negative) Urine Ketones NEGATIVE (NEGATIVE) Urine Blood SMALL (0-5) Ariel/ul Urine Nitrite POSITIVE (NEGATIVE) Urine Bilirubin NEGATIVE (NEGATIVE) Urine Urobilinogen NEGATIVE (0-1) mg/dL Ur Leukocyte Esterase LARGE (NEGATIVE) Urine WBC (Auto) >100 (0-5) /HPF Urine RBC (Auto) 11-15 (0-2) /HPF U Epithel Cells (Auto) RARE (FEW) /HPF Urine Bacteria (Auto) MODERATE (NEGATIVE) /HPF Urine Yeast (Budding) Rare (NEGATIVE) /HPF Urine Culture Reflexed YES (NO) Urine Glucose NEGATIVE (NEGATIVE) mg/dL 11/11/20 11/11/20 Range/Units 19:30 19:30 WBC 8.4 (4.0-10.5) K/mm3 RBC 4.00 L (4.1-5.4) M/mm3 Hgb 11.4 L (12.0-16.0) gm/dl Hct 36.2 (35-47) % MCV 90.5 (78-100) fl MCH 28.5 (26-32) pg MCHC 31.5 L (32-36) g/dl RDW 13.7 (11.5-14.0) % Plt Count 134 L (150-450) K/mm3 MPV 10.8 (7.5-11.0) fl Gran % 73.4 H (36.0-66.0) % Eos # (Auto) 0.01 (0-0.5) Absolute Lymphs (auto) 0.91 L (1.0-4.6) Absolute Monos (auto) 1.29 (0.0-1.3) Lymphocytes % 10.8 L (24.0-44.0) % Monocytes % 15.3 H (0.0-12.0) % Eosinophils % 0.1 (0.00-5.0) % Basophils % 0.4 (0.0-0.4) % Absolute Granulocytes 6.20 (1.4-6.9) Basophils # 0.03 (0-0.4) PT (9.4-12.5) SECONDS INR (0.8-3.0) Sodium 132 L (137-145) mmol/L Potassium 4.8 (3.5-5.1) mmol/L Chloride 101 (98-107) mmol/L Carbon Dioxide 22 (22-30) mmol/L Anion Gap 14.4 (5-15) MEQ/L BUN 21 H (7-17) mg/dL Creatinine 0.87 (0.52-1.04) mg/dL Estimated GFR > 60.0 ML/MIN Glucose 152 H (74-106) mg/dL Lactic Acid (0.4-2.0) Calcium 9.2 (8.4-10.2) mg/dL Total Bilirubin 0.80 (0.2-1.3) mg/dL AST 71 H (14-36) U/L ALT 54 H (0-35) U/L Alkaline Phosphatase 107 (38-126) U/L Serum Total Protein 6.9 (6.3-8.2) g/dL Albumin 4.0 (3.5-5.0) g/dL Urine Color (YELLOW) Urine Appearance (CLEAR) Urine pH (5-6) Ur Specific Wilson (1.005-1.025) Urine Protein (Negative) Urine Ketones (NEGATIVE) Urine Blood (0-5) Ariel/ul Urine Nitrite (NEGATIVE) Urine Bilirubin (NEGATIVE) Urine Urobilinogen (0-1) mg/dL Ur Leukocyte Esterase (NEGATIVE) Urine WBC (Auto) (0-5) /HPF Urine RBC (Auto) (0-2) /HPF U Epithel Cells (Auto) (FEW) /HPF Urine Bacteria (Auto) (NEGATIVE) /HPF Urine Yeast (Budding) (NEGATIVE) /HPF Urine Culture Reflexed (NO) Urine Glucose (NEGATIVE) mg/dL - Progress Progress: improved, re-examined Progress Note: 11/11/20 20:17 CAT scan of the head without contrast shows no acute intracranial injury or lesion. 11/11/20 21:49 Medical decision making: This patient feels very fatigued. It appears to me that her symptoms are secondary to a significant urinary tract infection. Patient does not have any significant pain. Teleneurologist evaluated the patient. Patient's exam is nonfocal. Her's CAT scan of the head without contrast does not show any acute intracranial abnormality. The teleneurologist stated that this patient does not appear to be having stroke. The neurologist just feels that the patient's symptoms is most likely secondary to significant urinary tract infection. I spoke with Dr. Kasper. We agreed that the patient should be placed in observation and be given IV hydration, intravenous antibiotics and neuro checks as well as repeat labs in the morning. Discussed with : Tatianna, Other (Teleneurology) Counseled pt/family regarding: lab results, diagnosis, rad results - Departure Departure Disposition: Home Clinical Impression: Urinary tract infection, Fatigue Condition: Stable Critical Care Time: No Referrals: [facility] [Primary Care Provider] -
[2020-11-11 19:37] LABS: BASOPHIL % 0.4 % (0.0-0.4); Basophil (Absolute #) 0.03 (0-0.4); Eosinophil % 0.1 % (0.00-5.0); Eosinophil (Absolute #) 0.01 (0-0.5); Hematocrit 36.2 % (35-47); Hemoglobin 11.4 gm/dl (12.0-16.0); Lymphocyte (Absolute #) 0.91 (1.0-4.6); Lymphocytes % 10.8 % (24.0-44.0); Mean Cell Volume 90.5 fl (78-100); Mean Corpuscular Hemoglobin 28.5 pg (26-32); Mean Corpuscular Hgb Concent. 31.5 g/dl (32-36); Mean Platelet Volume 10.8 fl (7.5-11.0); Monocyte (Absolute #) 1.29 (0.0-1.3); Monocytes % 15.3 % (0.0-12.0); Neutrophil % 73.4 % (36.0-66.0); Platelet Count 134 K/mm3 (150-450); Red Cell Distribution Width 13.7 % (11.5-14.0); White Blood Count 8.4 K/mm3 (4.0-10.5)
[2020-11-11 19:46] LABS: INR 2.85 (0.8-3.0); PROTIME 33.6 SECONDS (9.4-12.5)
[2020-11-11 19:54] LABS: ALKALINE PHOSPHATASE 107 U/L (38-126); ANION GAP 14.4 MEQ/L (5-15); BLOOD UREA NITROGEN 21 mg/dL (7-17); CHLORIDE 101 mmol/L (98-107); Calcium 9.2 mg/dL (8.4-10.2); Carbon Dioxide 22 mmol/L (22-30); Creatinine 1 0.87 mg/dL (0.52-1.04); EST GLOMERULAR FILTRATION RATE > 60.0 ML/MIN; Glucose 152 mg/dL (74-106); Potassium 4.8 mmol/L (3.5-5.1); SGOT/AST 71 U/L (14-36); SGPT/ALT 54 U/L (0-35); SODIUM 132 mmol/L (137-145); Total Protein 6.9 g/dL (6.3-8.2)
[2020-11-11 20:15] LABS: Appearance CLOUDY (CLEAR); Bacteria MODERATE /HPF (NEGATIVE); Bilirubin NEGATIVE (NEGATIVE); Blood SMALL Ery/ul (0-5); Epithelial Cells RARE /HPF (FEW); Glucose NEGATIVE (NEGATIVE); Ketones NEGATIVE (NEGATIVE); Leukocyte Esterase LARGE (NEGATIVE); Nitrite POSITIVE (NEGATIVE); Protein,Urine Dip 100 (Negative); Specific Gravity 1.017 (1.005-1.025); Urobilinogen NEGATIVE mg/dL (0-1); WBC >100 /HPF (0-5)
[2020-11-11 20:16] LABS: Budding Yeast Rare /HPF (NEGATIVE)
[2020-11-11] MEDS ORDERED: ROCEPHIN 1 Gm-D5w 50 ml Bag** 1 G/50 ML IVPB IV STA (20:38)
[2020-11-11] MEDS ORDERED: ROCEPHIN 1 Gm-D5w 50 ml Bag** 1 G/50 ML IVPB IV ONE (20:42)
[2020-11-11] MEDS ORDERED: Sodium Chloride 0.9% 1000 ML 1,000 ML IV STA (21:16)
[2020-11-11] MEDS ORDERED: Sodium Chloride 0.9% 1000 ML 1,000 ML ONE (21:23)
--- NOTE | 2020-11-11 21:57 | XRAY ---
Indication: Right-sided weakness. Multiple contiguous axial images obtained through the head without contrast. Comparison: None Age-appropriate global atrophy and minimal periventricular degenerative micro-ischemia bilaterally. No acute intracranial hemorrhage, abnormal extra-axial fluid collection, or mass effect. Basal ganglia demonstrates benign physiologic calcifications bilaterally. Fourth ventricle is midline without hydrocephalus. Baker-white matter differentiation preserved. Bony calvarium intact. Visualized paranasal sinuses and mastoid air cells are clear. Impression: Nonacute senile brain. Comment: Preliminary interpretation made by [facility]. No critical discrepancy.
[2020-11-12] MEDS ORDERED: TYLENOL 325 MG PO STA (00:16)
[2020-11-12] MEDS ORDERED: TYLENOL 325 MG ONE (00:17)
[2020-11-12 01:54] VITALS: BP 119/56; PULSE 61; O2SAT 94
== END 2020-11-12 01:40 | disposition critical access hospital (66) ==
LOC: ED 19:06
DX: N39.0 Urinary tract infection, site not specified (principal); R53.83 Other fatigue; I21.4 Non-ST elevation (NSTEMI) myocardial infarction; Z79.899 Other long term (current) drug therapy; Z79.01 Long term (current) use of anticoagulants; R41.0 Disorientation, unspecified; E11.9 Type 2 diabetes mellitus without complications
CPT/HCPCS: 36415; 70450; 80053; 81001; 83605; 84484; 85025; 85610; 87077; 87086; 87186; 94760; 96360; 96365; 99285; Q3014; J0696; U0003; A9270-GY

== ENCOUNTER 2022-07-11 16:06 | Emergency (ER) | payer MEDICARE ==
--- NOTE | 2022-07-11 16:27 | ERPHSYRPT ---
- History of Present Illness Time Seen by Provider: 07/11/22 16:40 Source: patient Exam Limitations: no limitations Patient Subjective Stated Complaint: PT states "I have been really tired and getting weaker and weaker over the past week." Triage Nursing Assessment: Pt presented alert and oriented x 3, skin pwd. Pt ambulates with a slow gait with a cane. Pt able to speak in clear full sentences. Pt resting comfortably on the bed. Physician History: Patient 76-year-old female presents to emergency department for evaluation of generalized weakness and fatigue x2 days. Patient states she is sleeping excessively. No pain. Patient states she recently had blood work performed by her primary care doctor. No significant findings observed. No trauma. No fever no nausea vomiting. No rash. Patient currently on amoxicillin for a left eye stye. Patient otherwise functioning within her baseline. No nausea no vomi ting no diarrhea. No rash. Significant other at bedside. They voiced no other complaints or concerns at this time. Portions of this note were created with voice recognition technology. There may be grammatical, spelling, punctuation or sound alike errors Timing/Duration: day(s) Severity: moderate (2 days) Modifying Factors: Improves With: nothing Associated Symptoms: denies symptoms Allergies/Adverse Reactions: Sulfa (Sulfonamide Antibiotics) Allergy (Intermediate, Verified 11/11/20 19:34) Hives nitrofurantoin [From Macrobid] Allergy (Unknown, Verified 11/11/20 19:34) Rash Home Medications: Metformin HCl 1000 mg [Glucophage 1000 MG] 1,000 mg PO BID 10/21/15 [History] Metoprolol Tartrate 12.5 mg PO BID 06/24/18 [History] Atorvastatin Calcium 40 mg PO HS 09/30/18 [History] Cholecalciferol (Vitamin D3) [Vitamin D3] 1,000 unit PO DAILY 07/14/20 [History] Duloxetine HCl [Cymbalta] 30 mg PO QAM 07/14/20 [History] Amoxicillin 500 mg PO TID 07/11/22 [History] Apixaban [Eliquis] 5 mg PO BID 07/11/22 [History] Empagliflozin [Jardiance] 20 mg PO DAILY 07/11/22 [History] Secukinumab [Cosentyx Pen (2 Pens)] 3 ml IM WEEKLY 07/11/22 [History] Hx Tetanus, Diphtheria Vaccination/Date Given: Yes Hx Influenza Vaccination/Date Given: Yes Hx Pneumococcal Vaccination/Date Given: Yes Travel Risk - International Travel Have you traveled outside of the country in past 3 weeks: No - Coronavirus Screening Are you exhibiting any of the following symptoms?: No Close contact with a COVID-19 positive Pt in past 14-21 Days: No - Vaccine Status Have you recieved a Covid-19 vaccination: Yes Hop Sorter: Exhale Fansa - Vaccination Dates Date of 2cond Vaccination (if applicable): 2020 - Review of Systems Constitutional: No Symptoms, No Fever, No Chills Eyes: No Symptoms Ears, Nose, & Throat: No Symptoms Respiratory: No Symptoms, No Cough, No Dyspnea Cardiac: No Symptoms, No Chest Pain, No Edema, No Syncope Abdominal/Gastrointestinal: No Symptoms, No Abdominal Pain, No Nausea, No Vomiting, No Diarrhea Genitourinary Symptoms: No Symptoms, No Dysuria Musculoskeletal: No Symptoms, No Back Pain, No Neck Pain Skin: No Symptoms, No Rash Neurological: No Symptoms, No Dizziness, No Focal Weakness, No Sensory Changes Psychological: No Symptoms Endocrine: No Symptoms Hematologic/Lymphatic: No Symptoms Immunological/Allergic: No Symptoms All Other Systems: Reviewed and Negative - Past Medical History Pertinent Past Medical History: Yes Neurological History: No Pertinent History ENT History: No Pertinent History Cardiac History: Arrhythmia Respiratory History: No Pertinent History Endocrine Medical History: Diabetes Type II Musculoskeletal History: Rheumatoid Arthritis, Other GI Medical History: No Pertinent History History: No Pertinent History Psycho-Social History: No Pertinent History Female Reproductive Disorders: Endometriosis Other Medical History: right knee replacement, DVT 2017 , 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, PT HAD AFIB 02/2018 - Past Surgical History Past Surgical History: Yes Neuro Surgical History: No Pertinent History Cardiac: No Pertinent History Respiratory: No Pertinent History Gastrointestinal: Appendectomy Genitourinary: No Pertinent History Musculoskeletal: Orthopedic Surgery Female Surgical History: Hysterectomy, Other Other Surgical History: BREAST BIOPSY, RIGHT KNEE REPLACEMENT - Social History Smoking Status: Never smoker Exposure to second hand smoke: No Drug Use: none Patient Lives Alone: No - Nursing Vital Signs Nursing Vital Signs: Initial Vital Signs Temperature 97.2 F 07/11/22 16:19 Pulse Rate 62 07/11/22 16:19 Respiratory Rate 20 07/11/22 16:19 Blood Pressure 148/55 07/11/22 16:19 Pain Scale Pain Intensity 2 - Physical Exam General Appearance: no apparent distress, alert Eye Exam: PERRL/EOMI, eyes nml inspection Ears, Nose, Throat Exam: normal ENT inspection, TMs normal, pharynx normal, moist mucous membranes Neck Exam: normal inspection, non-tender, supple, full range of motion Respiratory Exam: normal breath sounds, lungs clear, No respiratory distress Cardiovascular Exam: regular rate/rhythm, normal heart sounds, normal peripheral pulses Gastrointestinal/Abdomen Exam: soft, normal bowel sounds, No tenderness, No mass Back Exam: normal inspection, normal range of motion, No CVA tenderness, No vertebral tenderness Extremity Exam: normal inspection, normal range of motion, pelvis stable Neurologic Exam: alert, oriented x 3, cooperative, normal mood/affect, nml cerebellar function, nml station & gait, sensation nml, No motor deficits Skin Exam: normal color, warm, dry, No rash Lymphatic Exam: No adenopathy SpO2 Interpretation: normal SpO2: 98 O2 Delivery: Room Air - Course Nursing assessment & vital signs reviewed: Yes EKG Interpreted by Me: RATE (59), Sinus Rhythm, NORMAL AXIS, NORMAL INTERVALS Ordered Tests: Active Orders 24 hr Category Date Time Status Remote Sensing Surveyor STAT Care 07/11/22 16:26 Active EKG-ER Only STAT Care 07/11/22 16:25 Active IV Insertion STAT Care 07/11/22 16:25 Active Pulse Oximetry (ED) STAT Care 07/11/22 16:25 Active CBC W DIFF Stat Lab 07/11/22 16:45 Completed CMP Stat Lab 07/11/22 16:45 Completed MAGNESIUM Stat Lab 07/11/22 16:45 Completed NT PRO BNPII Stat Lab 07/11/22 16:45 Completed TROPONIN Q4H Lab 07/11/22 16:45 Completed TROPONIN Q4H Lab 07/11/22 20:30 Ordered TROPONIN Q4H Lab 07/12/22 00:30 Ordered TSH [TSH, 3RD Generation] Stat Lab 07/11/22 16:45 Completed UA W/RFX UR CULTURE Stat Lab 07/11/22 19:33 Completed Medication Summary Discontinued Medications Generic Name Dose Route Start Last Admin Trade Name Freq PRN Reason Stop Dose Admin Sodium Chloride 1,000 mls @ 999 mls/hr 07/11/22 18:02 07/11/22 19:32 Sodium Chloride 0.9% 1000 Ml IV 07/11/22 19:02 Infused .Q1H1M STA Infusion Sodium Chloride Confirm 07/11/22 18:09 Sodium Chloride 0.9% 1000 Ml Administered 07/11/22 18:10 Dose 1,000 mls @ ud .ROUTE .K-MED ONE Lab/Rad Data: Laboratory Result Diagrams 07/11/22 16:45 07/11/22 16:45 Laboratory Results 07/11/22 07/11/22 07/11/22 Range/Units 19:33 16:45 16:45 WBC (4.0-10.5) x10^3/uL RBC (4.1-5.4) x10^6/uL Hgb (12.0-16.0) g/dL Hct (35-47) % MCV (78-100) fL MCH (26-32) pg MCHC (32-36) g/dL RDW (11.5-14.0) % Plt Count (150-450) x10^3/uL MPV (7.5-11.0) fL Gran % (36.0-66.0) % Immature Gran % (Auto) (0.00-0.4) % Nucleat RBC Rel Count (0.00-0.1) % Eos # (Auto) (0-0.5) x10^3/uL Immature Gran # (Auto) (0.00-0.03) x10^3u/L Absolute Lymphs (auto) (1.0-4.6) x10^3/uL Absolute Monos (auto) (0.0-1.3) x10^3/uL Absolute Nucleated RBC (0.00-0.01) x10^3u/L Lymphocytes % (24.0-44.0) % Monocytes % (0.0-12.0) % Eosinophils % (0.00-5.0) % Basophils % (0.0-0.4) % Absolute Granulocytes (1.4-6.9) x10^3/uL Basophils # (0-0.4) x10^3/uL Sodium (137-145) mmol/L Potassium (3.5-5.1) mmol/L Chloride (98-107) mmol/L Carbon Dioxide (22-30) mmol/L Anion Gap (5-15) MEQ/L BUN (7-17) mg/dL Creatinine (0.52-1.04) mg/dL Estimated GFR ML/MIN Glucose (74-106) mg/dL Calcium (8.4-10.2) mg/dL Magnesium (1.6-2.3) mg/dL Total Bilirubin (0.2-1.3) mg/dL AST (14-36) U/L ALT (0-35) U/L Alkaline Phosphatase (38-126) U/L Troponin I (0.000-0.034) ng/mL NT-Pro-B Natriuret Pep (<300) pg/mL Serum Total Protein (6.3-8.2) g/dL Albumin (3.5-5.0) g/dL TSH 3rd Generation 3.040 (0.47-4.68) mIU/L Urine Color Yellow (Yellow) Urine Appearance Clear (Clear) Urine pH 5.0 (4.6-8.0) Ur Specific [place] 1.025 (1.005-1.030) Urine Protein Negative (Negative) Urine Glucose (UA) >=1000 A (Negative) mg/dL Urine Ketones Negative (Negative) Urine Blood Negative (Negative) Urine Nitrite Negative (Negative) Urine Bilirubin Negative (Negative) Urine Urobilinogen 0.2 (0.2) mg/dL Ur Leukocyte Esterase Negative (Negative) U Hyaline Cast (Auto) NONE SEEN (0-2) /LPF Urine Microscopic RBC 0-2 (0-5) /HPF Urine Microscopic WBC 0-2 (0-5) /HPF Ur Epithelial Cells None Seen (None Seen) /HPF Urine Bacteria None Seen (None Seen) /HPF Urine Culture Reflexed NO (NO) Influenza Type A Ag NEGATIVE (NEGATIVE) Influenza Type B Ag NEGATIVE (NEGATIVE) RSV (PCR) NEGATIVE (NEGATIVE) SARS-CoV-2 (PCR) NEGATIVE (NEGATIVE) 07/11/22 07/11/22 07/11/22 Range/Units 16:45 16:45 16:45 WBC 6.0 (4.0-10.5) x10^3/uL RBC 4.27 (4.1-5.4) x10^6/uL Hgb 12.0 (12.0-16.0) g/dL Hct 38.2 (35-47) % MCV 89.5 (78-100) fL MCH 28.1 (26-32) pg MCHC 31.4 L (32-36) g/dL RDW 13.5 (11.5-14.0) % Plt Count 212 (150-450) x10^3/uL MPV 10.9 (7.5-11.0) fL Gran % 69.3 H (36.0-66.0) % Immature Gran % (Auto) 0.3 (0.00-0.4) % Nucleat RBC Rel Count 0.0 (0.00-0.1) % Eos # (Auto) 0.07 (0-0.5) x10^3/uL Immature Gran # (Auto) 0.02 (0.00-0.03) x10^3u/L Absolute Lymphs (auto) 1.17 (1.0-4.6) x10^3/uL Absolute Monos (auto) 0.56 (0.0-1.3) x10^3/uL Absolute Nucleated RBC 0.00 (0.00-0.01) x10^3u/L Lymphocytes % 19.4 L (24.0-44.0) % Monocytes % 9.3 (0.0-12.0) % Eosinophils % 1.2 (0.00-5.0) % Basophils % 0.5 (0.0-0.4) % Absolute Granulocytes 4.17 (1.4-6.9) x10^3/uL Basophils # 0.03 (0-0.4) x10^3/uL Sodium 135 L (137-145) mmol/L Potassium 4.4 (3.5-5.1) mmol/L Chloride 97 L (98-107) mmol/L Carbon Dioxide 26 (22-30) mmol/L Anion Gap 16.1 H (5-15) MEQ/L BUN 20 H (7-17) mg/dL Creatinine 0.94 (0.52-1.04) mg/dL Estimated GFR > 60.0 ML/MIN Glucose 167 H (74-106) mg/dL Calcium 9.3 (8.4-10.2) mg/dL Magnesium 2.0 (1.6-2.3) mg/dL Total Bilirubin 0.70 (0.2-1.3) mg/dL AST 26 (14-36) U/L ALT 21 (0-35) U/L Alkaline Phosphatase 85 (38-126) U/L Troponin I < 0.012 (0.000-0.034) ng/mL NT-Pro-B Natriuret Pep 194 (<300) pg/mL Serum Total Protein 7.6 (6.3-8.2) g/dL Albumin 4.3 (3.5-5.0) g/dL TSH 3rd Generation (0.47-4.68) mIU/L Urine Color (Yellow) Urine Appearance (Clear) Urine pH (4.6-8.0) Ur Specific [place] (1.005-1.030) Urine Protein (Negative) Urine Glucose (UA) (Negative) mg/dL Urine Ketones (Negative) Urine Blood (Negative) Urine Nitrite (Negative) Urine Bilirubin (Negative) Urine Urobilinogen (0.2) mg/dL Ur Leukocyte Esterase (Negative) U Hyaline Cast (Auto) (0-2) /LPF Urine Microscopic RBC (0-5) /HPF Urine Microscopic WBC (0-5) /HPF Ur Epithelial Cells (None Seen) /HPF Urine Bacteria (None Seen) /HPF Urine Culture Reflexed (NO) Influenza Type A Ag (NEGATIVE) Influenza Type B Ag (NEGATIVE) RSV (PCR) (NEGATIVE) SARS-CoV-2 (PCR) (NEGATIVE) - Progress Progress: improved Progress Note: Patient 76-year-old female presents to our ED with complaints of fatigue and generalized weakness. Physical exam within normal limits. Patient reassessed. Patient states she does not feel significantly better however she does not want to be admitted for further evaluation and treatment. Work-up reveals hyponatremia dehydration. Work-up otherwise negative. Testing includes CBC CMP COVID testing which is negative. Magnesium within normal limits. BNP within normal limits. Troponin negative. TSH normal. Patient received normal saline to replace decreased sodium. Patient agrees to follow-up with her primary care doctor within 48 hours for evaluation. EKG shows normal sinus rhythm. Complexity of problem addressed is moderate. Acute condition with systemic illness. Complexity of data reviewed and analyzed is moderate. Testing ordered and testing analyzed. EKG independently analyzed by Dr. Bruno. Risk of complication and or risk morbidity/mortality patient management is low. Patient received IV fluids. No prescriptions at the pharmacy. Patient declined hospitalization. Patient agrees to follow-up with her primary care doctor within 40 hours for evaluation. Portions of this note were created with voice recognition technology. There may be grammatical, spelling, punctuation or sound alike errors 07/11/22 20:20 Counseled pt/family regarding: lab results, diagnosis, need for follow-up - Departure Departure Disposition: Home Clinical Impression: Fatigue, Generalized weakness, Glucosuria, Hyponatremia, Dehydration Condition: Stable Critical Care Time: No Referrals: ROSE MOREIRA [Primary Care Provider] - Follow up/PCP as directed Additional Instructions: Discharge/Care Plan DEONTE MUELLER was seen on 07/11/22 in the Emergency Room. The patient was counseled regarding Diagnosis,Lab results, Imaging studies, need for follow up and when to return to the Emergency Room. Prescriptions given: Discharge Note I have spoken with the patient and/or caregivers. I have explained the patient's condition, diagnosis and treatment plan based on the information available to me at this time. I have answered the patient's and/or caregiver's questions and addressed any concerns. The patient and/or caregivers have as good understanding of the patient's diagnosis, condition and treatment plan as can be expected at this point. The vital signs have been stable. The patient's condition is stable and appropriate for discharge from the emergency department. The patient will pursue further outpatient evaluation with the primary care physician or other designated or consulting physician as outlined in the discharge instructions. The patient and/or caregivers are agreeable to this plan of care and follow-up instructions have been explained in detail. The patient and/or caregivers have received these instruction. The patient/and or caregivers are aware that any significant change in condition or worsening of symptoms should prompt an immediate return to this or the closest emergency department or call 911.
[2022-07-11 16:51] LABS: Absolute Neutrophil Ct (ANC) 4.17 x10^3/uL (1.4-6.9); BASOPHIL % 0.5 % (0.0-0.4); Basophil (Absolute #) 0.03 x10^3/uL (0-0.4); Eosinophil % 1.2 % (0.00-5.0); Eosinophil (Absolute #) 0.07 x10^3/uL (0-0.5); Hematocrit 38.2 % (35-47); IMMATURE GRAN # 0.02 x10^3u/L (0.00-0.03); IMMATURE GRAN % 0.3 % (0.00-0.4); Lymphocyte (Absolute #) 1.17 x10^3/uL (1.0-4.6); Lymphocytes % 19.4 % (24.0-44.0); Mean Cell Volume 89.5 fL (78-100); Mean Corpuscular Hemoglobin 28.1 pg (26-32); Mean Corpuscular Hgb Concent. 31.4 g/dL (32-36); Mean Platelet Volume 10.9 fL (7.5-11.0); Monocyte (Absolute #) 0.56 x10^3/uL (0.0-1.3); Monocytes % 9.3 % (0.0-12.0); Neutrophil % 69.3 % (36.0-66.0); Platelet Count 212 x10^3/uL (150-450); Red Blood Count 4.27 x10^6/uL (4.1-5.4); Red Cell Distribution Width 13.5 % (11.5-14.0)
[2022-07-11 17:23] LABS: ALBUMIN 4.3 g/dL (3.5-5.0); ALKALINE PHOSPHATASE 85 U/L (38-126); ANION GAP 16.1 MEQ/L (5-15); BLOOD UREA NITROGEN 20 mg/dL (7-17); CHLORIDE 97 mmol/L (98-107); Calcium 9.3 mg/dL (8.4-10.2); Carbon Dioxide 26 mmol/L (22-30); Creatinine 1 0.94 mg/dL (0.52-1.04); EST GLOMERULAR FILTRATION RATE > 60.0 ML/MIN; Glucose 167 mg/dL (74-106); NT PRO BNPII 194 pg/mL (<300); Potassium 4.4 mmol/L (3.5-5.1); SGOT/AST 26 U/L (14-36); SGPT/ALT 21 U/L (0-35); SODIUM 135 mmol/L (137-145); Total Protein 7.6 g/dL (6.3-8.2)
[2022-07-11 17:40] LABS: INFLUENZA A NEGATIVE (NEGATIVE); INFLUENZA B NEGATIVE (NEGATIVE); RESPIRATORY SYNCTIAL VIRUS NEGATIVE (NEGATIVE); SARS-CoV-2 Xpert Express NEGATIVE (NEGATIVE)
[2022-07-11] MEDS ORDERED: Sodium Chloride 0.9% 1000 ML 1,000 ML IV STA (18:02)
[2022-07-11] MEDS ORDERED: Sodium Chloride 0.9% 1000 ML 1,000 ML ONE (18:09)
[2022-07-11 19:41] LABS: Appearance Clear (Clear); Bacteria None Seen /HPF (None Seen); Bilirubin Negative (Negative); Blood Negative (Negative); Epithelial Cells None Seen /HPF (None Seen); Glucose, Urine >=1000 mg/dL (Negative); Hyaline Casts NONE SEEN /LPF (0-2); Ketones Negative (Negative); Leukocyte Esterase Negative (Negative); Nitrite Negative (Negative); Protein,Urine Dip Negative (Negative); RBC 0-2 /HPF (0-5); Specific Gravity 1.025 (1.005-1.030); Urobilinogen 0.2 mg/dL (0.2); WBC 0-2 /HPF (0-5)
[2022-07-11 19:44] LABS: ADD URINE CULTURE? NO (NO)
[2022-07-11 20:24] VITALS: O2SAT 98
[2022-07-11 20:25] VITALS: BP 138/53; PULSE 63
== END 2022-07-11 20:32 | disposition home or self-care (01) ==
LOC: ED 16:06
DX: R53.83 Other fatigue (principal); R53.1 Weakness; R81 Glycosuria; E87.1 Hypo-osmolality and hyponatremia; E86.0 Dehydration; E11.9 Type 2 diabetes mellitus without complications; Z79.84 Long term (current) use of oral hypoglycemic drugs; Z79.01 Long term (current) use of anticoagulants; Z79.899 Other long term (current) drug therapy; Z20.828 Contact with and (suspected) exposure to other viral communicable diseases
CPT/HCPCS: 0241U; 36000; 36415; 80053; 81001; 83735; 83880; 84443; 84484; 85025; 93005; 93041; 94760; 96360; 99284

== ENCOUNTER 2025-01-05 08:54 | Day surgery (SDC) | payer MEDICARE ==
[2025-01-05] MEDS ORDERED: Lactated Ringers 1,000 ML IV ONE (09:52)
[2025-01-05 10:14] LABS: Calcium 9.0 mg/dL (8.4-10.2); Carbon Dioxide 25.0 mmol/L (22-30); Creatinine 1 0.79 mg/dL (0.52-1.04); EST GLOMERULAR FILTRATION RATE 76.0 ML/MIN; Glucose 167.0 mg/dL (74-106); Potassium 4.5 mmol/L (3.5-5.1)
[2025-01-05] MEDS: Ak-Dilate OPHTHALMIC*** 0.71 ML, Cyclogyl 1% OPHTH SOL 0.71 ML, GATIFLOXACIN 0.5% OPHTH... OP SCH (10:49)
[2025-01-05] MEDS: TETRACAINE 0.5% STERI-UNIT SOL OP ONE ×2 (10:50)
[2025-01-05] MEDS ORDERED: propofoL IV ONE (11:26)
[2025-01-05 11:50] VITALS: RESP 16; TEMP 97.4
[2025-01-05] MEDS ORDERED: Zofran 4 MG/2 ML VIAL IV PRN (12:00)
[2025-01-05] MEDS ORDERED: DEXMEDETOMIDINE 80 MCG/20ML-NS IV NR (12:00)
[2025-01-05] MEDS ORDERED: VIGAMOX/BSS 0.15% SYR IO NR (12:00)
[2025-01-05] MEDS ORDERED: BETADINE 5% OPHTHALMIC 30 ML OP NR (12:00)
[2025-01-05] MEDS ORDERED: TRIAMCINOLONE 15 MG/ML INJ INTRAOP NR (12:00)
[2025-01-05] MEDS ORDERED: OMIDRIA 1-0.3% VIAL IO NR (12:00)
[2025-01-05] MEDS ORDERED: DEXTENZA OP NR (12:00)
[2025-01-05 12:02] VITALS: BP 134/62; PULSE 51; O2SAT 97
== END 2025-01-05 12:14 | disposition home or self-care (01) ==
LOC: SDC 08:54
PROVIDERS: ATTEND Ophthalmology
DX: H25.812 Combined forms of age-related cataract, left eye (principal); I10 Essential (primary) hypertension; E11.9 Type 2 diabetes mellitus without complications

== ENCOUNTER 2025-02-02 08:45 | Day surgery (SDC) | payer MEDICARE ==
[~2025-02-02 08:45] MED LIST changes: +BETADINE 5% OPHTHALMIC 30 ML OP NR; +DEXMEDETOMIDINE 80 MCG/20ML-NS IV NR; +DEXTENZA OP NR; -Ketamine HCl 50 MG/ML IJ ONE; -Lactated Ringers 1,000 ML IV SCH; +OMIDRIA 1-0.3% VIAL IO NR; +TRIAMCINOLONE 15 MG/ML INJ INTRAOP NR; +VIGAMOX/BSS 0.15% SYR IO NR; +Zofran 4 MG/2 ML VIAL IV PRN
[2025-02-02] MEDS ORDERED: Epinephrine Preservative Free 1 MG/ML IJ ONE (08:46)
[2025-02-02] MEDS: TETRACAINE 0.5% STERI-UNIT SOL OP ONE ×2 (09:15)
[2025-02-02] MEDS: Ak-Dilate OPHTHALMIC*** 0.71 ML, Cyclogyl 1% OPHTH SOL 0.71 ML, GATIFLOXACIN 0.5% OPHTH... OP SCH (09:15)
[2025-02-02 10:00] LABS: Calcium 9.2 mg/dL (8.4-10.2); Carbon Dioxide 25.0 mmol/L (22-30); Creatinine 1 0.8 mg/dL (0.52-1.04); EST GLOMERULAR FILTRATION RATE 74.9 ML/MIN; Glucose 212.0 mg/dL (74-106); Potassium 4.2 mmol/L (3.5-5.1)
[2025-02-02] MEDS ORDERED: propofoL IV ONE (11:52)
[2025-02-02 12:22] VITALS: RESP 16
[2025-02-02 12:28] VITALS: BP 117/72; PULSE 61; TEMP 97.2; O2SAT 97
== END 2025-02-02 12:39 | disposition home or self-care (01) ==
LOC: SDC 08:45
PROVIDERS: ATTEND Ophthalmology
DX: H25.811 Combined forms of age-related cataract, right eye (principal); I10 Essential (primary) hypertension; E11.9 Type 2 diabetes mellitus without complications